=== PATIENT | male | born 1955 | race Caucasian/White ===

== ENCOUNTER → 2018-11-10 | Outpatient (CLI) | payer BC ==
[2018-11-10 12:10] LABS: CREATINE KINASE 64 U/L (39-308); GLUCOSE 87 mg/dL (70-99)
[2018-11-10 12:15] LABS: C-REACTIVE PROTEIN < 0.5 mg/L (0-3.3)
== END | disposition home or self-care (01) ==
LOC: LAB 10:14
PROVIDERS: ATTEND Psychiatry & Neurology Neurology with Special Qualifications in Child Neurology
DX: R53.1 Weakness (principal); R20.0 Anesthesia of skin; M79.10 Myalgia, unspecified site
CPT/HCPCS: 82550; 82607; 82746; 82947; 84165; 84443; 85651; 86038; 86140